=== PATIENT | male | born 1965 | race Hispanic/Latino ===

== ENCOUNTER 2017-04-21 08:31 | Emergency (ER) | payer SELFPAY ==
[2017-04-21] MEDS ORDERED: NACL 0.9% 1000 ML 1,000 ML IV ONE (16:32)
--- NOTE | 2017-04-21 17:12 | Emergency Department Report ---
ED Dizziness HPI - General Chief Complaint: Dizziness Stated Complaint: DIZZINESS Time Seen by Provider: 04/21/17 16:30 Source: patient, EMS Mode of arrival: Wheelchair Limitations: No Limitations - History of Present Illness Initial Comments: Patient is a 51-year-old male unknown to me poor historian who presents with dizziness. Patient reports he's had dizziness for the past week with unsteady gait, described as room spinning associated nausea. Currently patient reports a dizziness has resolved. [facility], patient reports he had a negative head CT,and splint for a broken left wrist, and was given a cane. Patient has yet [facility]. Pt also reports he has had vertigo in the past and these are similar symptoms. Pt also reports new mediation gabapentin, but the dizziness started before the gabapentin was started. Otherwise no fevers, chills, vision changes, hearing changes, urinary incontinence, stool incontinence, chest pain, SOB, abd pain, NVD, extremity pain or weakness, travel, or sick contacts. - Related Data Allergies Allergy/AdvReac Type Severity Reaction Status Date / Time No Known Allergies Allergy Unverified 04/21/17 09:25 ED Review of Systems ROS: Stated complaint: DIZZINESS Other details as noted in HPI Comment: All other systems reviewed and negative ED Past Medical Hx - Past Medical History Previous Medical History?: No - Surgical History Past Surgical History?: No - Social History Smoking Status: Never Smoker Substance Use Type: None ED Physical Exam - General Limitations: No Limitations General appearance: alert, in no apparent distress - Head Head exam: Present: atraumatic, normocephalic - Eye Eye exam: Present: normal appearance, PERRL, EOMI. Absent: scleral icterus, conjunctival injection, nystagmus Pupils: Present: normal accommodation. Absent: irregular, unequal - ENT ENT exam: Present: normal exam, mucous membranes moist - Neck Neck exam: Present: normal inspection - Respiratory Respiratory exam: Present: normal lung sounds bilaterally. Absent: respiratory distress - Cardiovascular Cardiovascular Exam: Present: regular rate, normal rhythm. Absent: systolic murmur, diastolic murmur, rubs, gallop - GI/Abdominal GI/Abdominal exam: Present: soft, normal bowel sounds - Rectal Rectal exam: Present: deferred - Extremities Exam Extremities exam: Present: normal inspection, full ROM, normal capillary refill. Absent: tenderness, pedal edema, joint swelling - Back Exam Back exam: Present: normal inspection, full ROM. Absent: tenderness - Neurological Exam Neurological exam: Present: alert, oriented X3, CN II-XII intact, normal gait ( with cane assistance), reflexes normal. Absent: motor sensory deficit - Psychiatric Psychiatric exam: Present: normal affect, normal mood - Skin Skin exam: Present: warm, dry, intact, normal color. Absent: rash ED Course Vital Signs 04/21/17 04/21/17 04/21/17 09:22 17:40 19:37 Temperature 97.7 F 98.2 F 97.9 F Pulse Rate 110 H 74 83 Respiratory 16 16 14 Rate Blood Pressure 135/98 Blood Pressure 142/84 157/88 [Right] O2 Sat by Pulse 97 94 95 Oximetry ED Medical Decision Making - Lab Data Result diagrams: 04/21/17 16:50 04/21/17 16:50 - EKG Data -: EKG Interpreted by Ca - EKG Data 04/21/17 1636 Normal sinus rhythm at 77 bpm, QTC 430 milliseconds, normal axis, no LVH no ST changes no STEMI - Medical Decision Making Pt already had a negative head CT at the [facility] within the last 5 days, will not re- scan his head. Pt has had vertigo in the past, bloodwork is normal, no UTI, and the patient's dizziness has resolved. HR has normalized to the 80's Pt to follow up with the [facility] Critical care attestation.: If time is entered above; I have spent that time in minutes in the direct care of this critically ill patient, excluding procedure time. ED Disposition Clinical Impression: Dizziness Disposition: DC-01 TO HOME OR SELFCARE Is pt being admited?: No Condition: Stable Instructions: Dizziness (ED) Referrals: PRIMARY CARE, [Primary Care Provider] - 3-5 Days
[2017-04-21 17:19] LABS: Basophils % (Auto) 0.9 % (0.0-1.8); Eosinophils % (Auto) 0.6 % (0.0-4.3); Hematocrit 41.5 % (35.5-45.6); Hemoglobin 13.8 gm/dl (11.8-15.2); Mean Corpuscular HGB Conc 33 % (32-34); Mean Corpuscular Hemoglobin 29 pg (28-32); Mean Corpuscular Volume 87 fl (84-94); Platelet Count 409 K/mm3 (140-440); Red Cell Distribution Width 13.7 % (13.2-15.2); White Blood Count 13.5 K/mm3 (4.5-11.0)
[2017-04-21 17:27] LABS: Alanine Aminotransferase 13 units/L (7-56); Albumin 3.9 g/dL (3.9-5); Alkaline Phosphatase 193 units/L (35-129); BUN/Creatinine Ratio 21.42; Blood Urea Nitrogen 15 mg/dL (9-20); Calcium 9.8 mg/dL (8.4-10.2); Carbon Dioxide 25 mmol/L (22-30); Glucose 108 mg/dL (75-100); Total Protein 7.8 g/dL (6.3-8.2)
[2017-04-21 17:28] LABS: Anion Gap 21 mmol/L; Chloride 96.7 mmol/L (98-107); Potassium 4.2 mmol/L (3.6-5.0); Sodium 138 mmol/L (137-145)
[2017-04-21 19:15] LABS: Bilirubin,Urine NEG (Negative); Blood,Urine NEG (Negative); Ketones,Urine TR mg/dL (Negative); Leukocyte Esterase,Urine NEG (Negative); Mucus,Urine FEW /HPF; Nitrite,Urine NEG (Negative); Protein,Urine <15 mg/dL mg/dL (Negative); Urobilinogen,Urine < 2.0 mg/dL (<2.0)
[2017-04-21 20:20] LABS: Urine Drugs of Abuse Note Disclamer
--- NOTE | 2017-04-21 20:25 | Consultation ---
History of Present Illness - Reason for Consult Consult date: 04/21/17 Requesting physician: NUVIA RODRIGUEZ - History of Present Illness 51 YO Male with no PMH presents to ED for evaluation. Pt states that he is dizzy. Pt states that he has been experiencing the aforementioned symptom for the past week. Pt states that his symptoms have resolved at time of exam, and that he would like something to eat and drink. [facility], patient reports he had a negative head CT,and splint for a broken left wrist, and was given a cane. Pt denies compliance with F/U instructions. Pt denies fever, chills, CP, Palpitations, NVD , recent ill contacts, risk factors for HIV, productive cough, or skin rashes. Past History Past Medical History: No medical history, other (reviewed) Past Surgical History: No surgical history, Other (reviewed) Social history: single. denies: smoking, alcohol abuse, prescription drug abuse Family history: no significant family history (reviewed) Medications and Allergies Allergies Allergy/AdvReac Type Severity Reaction Status Date / Time No Known Allergies Allergy Unverified 04/21/17 09:25 Home Medications Medication Instructions Recorded Confirmed Last Taken Type Azithromycin [Zithromax TAB] 500 mg PO QDAY #5 tablet 04/21/17 Unknown Rx Meclizine [Antivert] 25 mg PO TID PRN #20 tablet 04/21/17 Unknown Rx Review of Systems All systems: negative Constitutional: weakness, other (dizziness) Exam - Constitutional Vitals: Temp Pulse Resp BP Pulse Ox 97.9 F 83 14 157/88 95 04/21/17 19:37 04/21/17 19:37 04/21/17 19:37 04/21/17 19:37 04/21/17 19:37 General appearance: Present: no acute distress, well-nourished - EENT Eyes: Present: PERRL ENT: hearing intact, clear oral mucosa - Neck Neck: Present: supple, normal ROM - Respiratory Respiratory effort: normal Respiratory: bilateral: CTA - Cardiovascular Heart Sounds: Present: S1 & S2. Absent: rub, click - Extremities Extremities: pulses symmetrical, No edema Peripheral Pulses: within normal limits - Abdominal General gastrointestinal: Present: soft, non-tender, non-distended, normal bowel sounds Male genitourinary: Present: normal - Integumentary Integumentary: Present: clear, warm, dry - Musculoskeletal Musculoskeletal: gait normal, strength equal bilaterally - Psychiatric Psychiatric: appropriate mood/affect, intact judgment & insight - Neurologic Neurologic: CNII-XII intact, moves all extremities Results - Labs CBC & Chem 7: 04/21/17 16:50 04/21/17 16:50 Labs: Abnormal lab results 04/21/17 04/21/17 Range/Units 16:50 16:50 WBC 13.5 H (4.5-11.0) K/mm3 Lymph % (Auto) 8.7 L (13.4-35.0) % Giles % (Auto) 8.7 H (0.0-7.3) % Giles # 1.2 H (0.0-0.8) K/mm3 Seg Neutrophils % 81.1 H (40.0-70.0) % Seg Neutrophils # 11.0 H (1.8-7.7) K/mm3 Chloride 96.7 L (98-107) mmol/L Creatinine 0.7 L (0.8-1.5) mg/dL Glucose 108 H (75-100) mg/dL Alkaline Phosphatase 193 H (35-129) units/L Assessment and Plan - Patient Problems (1) Benign positional vertigo Status: Acute Qualifiers: Laterality: L Plan to address problem: Pt given meclizine, instructed to f/u pcp within 3 days for further care, neurology f/u prn. (2) Noncompliance Status: Acute Plan to address problem: Pt counseled,
[2017-04-21 22:37] VITALS: BP 156/87
== END 2017-04-21 22:36 | disposition admitted as inpatient to this hospital (09) ==
LOC: ED 08:31
DX: R42 Dizziness and giddiness (principal)
CPT/HCPCS: 36415; 80053; 80307; 81001; 83735; 84443; 84484; 85025; 85379; 93005; 93010; 96360; 99284; J7030